=== PATIENT | male | born 1990 | race Caucasian/White ===

== ENCOUNTER 2017-11-23 20:25 | Emergency (ER) | payer OTHER ==
[~2017-11-23] VITALS: Ht 170.2 cm; Wt 79.4 kg
[2017-11-23 20:34] VITALS: BP 114/65
--- NOTE | 2017-11-23 20:41 | NUR ---
PT TAKEN TO CHAIR E
--- NOTE | 2017-11-23 20:45 | NUR ---
27/M C/O COUGH AND SORE THROAT, WAS PREVIOUSLY SEEN LAST FRIDAY. PT ASKING FOR DOCTOR'S NOTE. AOX4, AMBULATORY, RR EVEN AND UNLABORED. PT DENIES CP, SOB, FEVER, N/V/D.
[2017-11-23 21:50] VITALS: BP 126/74
--- NOTE | 2017-11-23 21:50 | NUR ---
Patient discharged with v/s stable. Written and verbal after care instructions given and explained. Patient verbalized understanding. Ambulatory with steady gait. All questions addressed prior to discharge. Advised to follow up with PMD.
== END 2017-11-23 21:50 | disposition home or self-care (01) ==
LOC: MED 20:25
DX: J06.9 Acute upper respiratory infection, unspecified (principal)
CPT/HCPCS: 99283

== ENCOUNTER 2021-11-15 20:16 | Inpatient (IN) | payer MEDICAID, SELFPAY ==
[~2021-11-15] VITALS: Ht 170.2 cm; Wt 83.9 kg
[2021-11-15 20:58] VITALS: BP 157/72
--- NOTE | 2021-11-15 21:08 | NUR ---
TO LOBBY FOLLOWING TRIAGE
--- NOTE | 2021-11-15 21:10 | NUR ---
UA DIPPED THEN SENT TO LAB
[2021-11-15] MEDS ORDERED: NACL 0.9% 1,000 ML IV SCH (21:15)
[2021-11-15 21:25] LABS: APPEARANCE,URINE CLEAR (CLEAR); BILIRUBIN,URINE NEGATIVE (NEGATIVE); BLOOD, URINE NEGATIVE (NEGATIVE); COLOR,URINE YELLOW (YELLOW); LEUKOCYTE ESTERASE ,URINE NEGATIVE (NEGATIVE); NITRITE, URINE NEGATIVE (NEGATIVE); UGLUCOSE NEGATIVE (NEGATIVE)
--- NOTE | 2021-11-15 21:27 | NUR ---
31 YO M BIB SELF WITH C/C OF 7/10 LOWER ABD PAIN X THIS MORNING. DENIES N/V/D. PT STATES HE HAS BEEN HAVING NORMAL BM. DENIES URINARY CHANGES. ABD APPEARS FLAT. BOWEL SOUNDS ACTIVE X4 QUADS. PT PLACED IN GOWN. DENIES HX, RX AND ALLERGIES
--- NOTE | 2021-11-15 21:30 | NUR ---
Note undone in EDM - 11/15/21 at 2130 by [facility] 31 YO M BIB SELF WITH C/C OF 7/10 LOWER ABD PAIN X THIS MORNING. DENIES N/V/D. PT STATES HE HAS BEEN HAVING NORMAL BM. DENIES URINARY CHANGES. ABD APPEARS FLAT. BOWEL SOUNDS ACTIVE X4 QUADS. PT PLACED IN GOWN. DENIES HX, RX AND ALLERGIES
[2021-11-15 21:45] LABS: BASOPHILS # (AUTO) 0.1 K/uL (0.00-0.22); BASOPHILS % (AUTO) 0.9 % (0.0-2.0); EOSINOPHILS # (AUTO) 0.2 K/uL (0-0.4); EOSINOPHILS % (AUTO) 1.3 % (0.0-4.0); HEMOGLOBIN 14.9 g/dL (12.0-18.0); LYMPHOCYTES # (AUTO) 2.2 K/uL (2.0-11.5); LYMPHOCYTES % (AUTO) 17.2 % (20.5-51.1); MEAN CORPUSCULAR HEMOGLOBIN 28 pg (27-31); MEAN CORPUSCULAR HGB CONC 33 g/dL (33-37); MEAN CORPUSCULAR VOLUME 84.3 fL (80-94); MONOCYTES # (AUTO) 1.1 K/uL (0.8-1.0); MONOCYTES % (AUTO) 8.8 % (1.7-9.3); NEUTROPHILS # (AUTO) 9.3 K/uL (1.8-7.7); NEUTROPHILS % (AUTO) 71.8 % (42.2-75.2); PLATELET COUNT (AUTO) 261 K/uL (140-450); RED BLOOD CELL COUNT(AUTO) 5.33 MIL/uL (4.20-6.10); RED CELL DISTRIBUTION WIDTH 13.6 % (11.6-13.7); WHITE BLOOD COUNT (AUTO) 12.9 K/uL (4.8-10.8)
--- NOTE | 2021-11-15 21:47 | NUR ---
31YR OLD MALE BIB SELF C/O ABD PAIN RLQ X1 DAY . NO N/V/D. PAIN 03/10. 20G IV CATH IN L AC LABS AND URINE OBTAINED. NKDA . NO MED HX
--- NOTE | 2021-11-15 22:00 | NUR ---
PT BACK FROM CT. IV BOLUS NS HANGING. PT IN BED AWAITING RESULTS.
[2021-11-15 22:08] LABS: ALBUMIN 4.1 g/dL (3.4-5.0); ANION GAP 10.1 (8-16); CARBON DIOXIDE 31.6 mmol/L (21-32); POTASSIUM 3.7 mmol/L (3.5-5.1); TOTAL BILIRUBIN 0.8 mg/dL (0.0-1.0)
--- NOTE | 2021-11-15 22:10 | NUR ---
SHILA GOLDEN AT BEDSIDE EXAMINING PT.
--- NOTE | 2021-11-15 22:12 | NUR ---
PT DENIES TAKING MEDICATION AT HOME. SKIN IS INTACT.
[2021-11-15] MEDS ORDERED: metroNIDAZOLE 500 MG/NS PREMIX 100 ML IV ONE (22:15)
--- NOTE | 2021-11-15 22:17 | NUR ---
SPOKE TO ABOUT GETTING CULTURES, STATED THERES NO NEED.
[2021-11-15] MEDS ORDERED: cefTRIAXone 1,000 MG VIAL ONE (22:20)
[2021-11-15] MEDS: NACL 0.9% 1,000 ML IV SCH (22:50)
--- NOTE | 2021-11-15 23:00 | NUR ---
PT IS BED WITH SIDERAILS UP. AWAITING SURGERY IN AM. M/S HOLD
--- NOTE | 2021-11-15 23:26 | NUR ---
REPORT GIVEN TO ARMINDA BARNEY. EXT [id number]
--- NOTE | 2021-11-15 23:30 | NUR ---
Patient will be admitted to care of . Admited to [facility]. Will go to [id number]. Belongings list completed. Report to ARMINDA BARNEY.
--- NOTE | 2021-11-15 23:35 | NUR ---
PATIENT WAS ADMITTED IN [facility] UNIT AT 2335.
--- NOTE | 2021-11-15 23:35 | NUR ---
PATIENT WAS BROUGHT TO [facility] UNIT VIA WHEELCHAIR AAOX4 ON ROOM AIR. AMBULATORY. NO S/S OF RESPIRATORY DISTRESS. BREATHING EVEN UNLABORED. ALL SAFETY MEASURES ARE IN PLACE. ORIENTED TO CALL LIGHT, TOILET, STAFF. MRSA SCREENING DONE. BOWEL SOUND PRESENT IN ALL 4 QUADRANT. LUNGS CLEAR ON AUSCULTATION. NO COMPLAINTS OF PAIN AT THIS TIME.
[2021-11-16] MEDS ORDERED: PIPERACILLIN/TAZOBACTAM 3.375 GM VIAL IV ONE ×2 (00:03→05:18)
[2021-11-16] MEDS: PIPERACILLIN/TAZOBACTAM 3.375 GM in DEXTROSE 5% 50 ML IV SCH ×5 (00:22→23:32)
--- NOTE | 2021-11-16 00:22 | NUR ---
STARTED IVF NS AT 100 MLS/HR. ZOSYN ADMINISTERED ORDERED.
[2021-11-16] MEDS: NACL 0.9% 1,000 ML IV SCH ×3 (00:25→18:58)
--- NOTE | 2021-11-16 02:56 | NUR ---
CHECKED PT, PATIENT IS SLEEPING. NO SOB NOTED. CALL LIGHT WITHIN REACH.
[2021-11-16] MEDS ORDERED: HYDROcodone/APAP 5/325 MG 1 TAB TAB PO PRN ×3 (05:05→16:10)
--- NOTE | 2021-11-16 05:05 | NUR ---
PATIENT COMPLAINED OF ABDOMINAL PAIN, DR. MANLEY NOTIFIED WITH ORDERS, CARRIED OUT.
[2021-11-16] MEDS ORDERED: MORPHINE SULFATE 2 MG/ML SYR IVP PRN ×2 (05:10→07:30)
--- NOTE | 2021-11-16 05:14 | NUR ---
PAIN MEDICINE NOT ADMINISTERED, PATIENT SAID HE CAN TOLERATE THE PAIN.
--- NOTE | 2021-11-16 07:23 | NUR ---
ENDORSED PATIENT TO NURSE ALEJANDRO FOR CONTINUITY OF CARE. PT IS STABLE.
--- NOTE | 2021-11-16 07:24 | NUR ---
RECEIVED ENDORSEMENT FROM SAVITA HILLIARD FOR CONTINUITY OF CARE. PT IS STABLE IN BED. A&OX4. VERBALLY RESPONSIVE AND ABLE TO COMMUNICATE NEEDS. DENIES PAIN. ON ROOM AIR. RESPIRATIONS EVEN AND UNLABORED WITH NO APPARENT S/SX OF ACUTE DISTRESS. PATIENT IS AMBULATORY AND CONTINENT. SKIN IS INTACT. PATIENT'S IV SITE TO THE LAC 20G IS PATENT/INTACT WITH NS INFUSING AT 100 ML/HR. POC UPDATED. ALL SAFETY MEASURES IN PLACE. CALL LIGHT WITHIN REACH. WILL CONTINUE TO MONITOR.
[2021-11-16] MEDS ORDERED: DOCUSATE SODIUM 100 MG GELCAP PO PRN (07:30)
[2021-11-16] MEDS ORDERED: MAG SULF 2000 MG/WATER PREMIX 50 ML IV PRN (07:30)
[2021-11-16] MEDS ORDERED: ACETAMINOPHEN 325 MG TAB PO PRN (07:30)
[2021-11-16] MEDS ORDERED: ZOLPIDEM 5 MG TAB PO PRN (07:30)
[2021-11-16] MEDS ORDERED: POTASSIUM CHLORIDE 10 MEQ TABER PO PRN (07:30)
[2021-11-16] MEDS ORDERED: ONDANSETRON 4 MG/2 ML VIAL IVP PRN ×2 (07:30→15:25)
[2021-11-16] MEDS ORDERED: LORazepam 2 MG/ML VIAL IM/IVP PRN (07:30)
[2021-11-16] MEDS ORDERED: SODIUM PHOS / POTASSIUM PHOS 1 PKT PDR PO PRN (07:30)
[2021-11-16 08:00] VITALS: BP 109/62
[2021-11-16 08:50] LABS: BASOPHILS # (AUTO) 0.1 K/uL (0.00-0.22); BASOPHILS % (AUTO) 1.2 % (0.0-2.0); EOSINOPHILS # (AUTO) 0.2 K/uL (0-0.4); EOSINOPHILS % (AUTO) 2.4 % (0.0-4.0); HEMATOCRIT 42.9 % (36-52); HEMOGLOBIN 14.2 g/dL (12.0-18.0); LYMPHOCYTES # (AUTO) 1.6 K/uL (2.0-11.5); LYMPHOCYTES % (AUTO) 22.9 % (20.5-51.1); MEAN CORPUSCULAR HEMOGLOBIN 28 pg (27-31); MEAN CORPUSCULAR HGB CONC 33 g/dL (33-37); MEAN CORPUSCULAR VOLUME 84.8 fL (80-94); MONOCYTES # (AUTO) 0.5 K/uL (0.8-1.0); MONOCYTES % (AUTO) 7.2 % (1.7-9.3); NEUTROPHILS # (AUTO) 4.6 K/uL (1.8-7.7); NEUTROPHILS % (AUTO) 66.3 % (42.2-75.2); PLATELET COUNT (AUTO) 231 K/uL (140-450); RED BLOOD CELL COUNT(AUTO) 5.06 MIL/uL (4.20-6.10); RED CELL DISTRIBUTION WIDTH 14.2 % (11.6-13.7); WHITE BLOOD COUNT (AUTO) 6.9 K/uL (4.8-10.8)
[2021-11-16 09:26] LABS: PROTHROMBIN TIME 9.8 secs (10.8-13.4)
--- NOTE | 2021-11-16 09:33 | NUR ---
PT ENDORSED TO MARGE RESTREPO FOR CONTINUITY OF CARE. PT IS STABLE.
--- NOTE | 2021-11-16 09:34 | NUR ---
RECEIVED REPORT FROM ALEJANDRO RESTREPO. ASSUMED CARE FOR PT. RESPIRATIONS ARE EVEN AND UNLABORED. NO SIGNS OF DISTRESS NOTED. CALL LIGHT WITHIN REACH. ALL SAFETY MEASURES IN PLACE. WILL CONTINUE TO MONITOR.
[2021-11-16 10:04] LABS: ALBUMIN 3.4 g/dL (3.4-5.0); TOTAL BILIRUBIN 1.2 mg/dL (0.0-1.0)
[2021-11-16 10:13] LABS: CHOL/HDL RATIO 3.4 (1-4.5); FREE T4 (FREE THYROXINE) 1.21 ng/dL (0.76-1.46); PHOSPHORUS 3.1 mg/dL (2.5-4.9); THYROID STIMULATING HORMONE 0.81 uIU/mL (0.34-3.74)
[2021-11-16 10:19] LABS: BARBITURATE, URINE NEGATIVE ng/ml (NEG <=200); BENZODIAZEPINE, URINE NEGATIVE ng/mL (NEG <=200); CANNABINOID, URINE POSITIVE ng/mL (NEG <=50); COCAINE, URINE NEGATIVE ng/mL (NEG <=300); PHENCYCLIDINE SCREEN,URINE NEGATIVE ng/mL (NEG <=25)
[2021-11-16 10:20] LABS: OPIATE, URINE NEGATIVE ng/mL (NEG <=2000)
--- NOTE | 2021-11-16 10:28 | NUR ---
PATIENT HAS BEEN SCREENED AND CATEGORIZED LOW NUTRITION RISK. PATIENT WILL BE SEEN WITHIN 7 DAYS OF ADMISSION. 11/22/[address]
--- NOTE | 2021-11-16 12:54 | NUR ---
DID ROUNDS ON PT. PT IN BED ON HIS PHONE. RESPIRATIONS ARE EVEN AND UNLABORED ON ROOM AIR. NO COMPLAINTS OF PAIN OR DISCOMFORT NOTED. CALL LIGHT WITHIN REACH. WILL CONTINUE TO MONITOR.
[2021-11-16] MEDS ORDERED: BUPIVACAINE-MPF/EPI 0.25% 10 ML VIAL INJ ONE (13:10)
[2021-11-16] MEDS ORDERED: LIDOCAINE MPF 1% 10 ML ONE (13:11)
--- NOTE | 2021-11-16 13:51 | NUR ---
OR TEAM ON UNIT TO MACHINE OPERATOR PACKAGING PT FOR SCHEDULED PROCEDURE. PT IS AWAKE AND ALERT. RESPIRATIONS ARE EVEN AND UNLABORED. NO SIGNS OF DISTRESS NOTED.
[2021-11-16] MEDS ORDERED: HYDROmorphone PFS 2 MG/ML SYR ONE (14:07)
[2021-11-16] MEDS ORDERED: PROPOFOL 200 MG/20 ML VIAL IV ONE (14:07)
[2021-11-16] MEDS ORDERED: MIDAZOLAM 2 MG/2 ML VIAL ONE (14:07)
[2021-11-16] MEDS ORDERED: ROCURONIUM 50 MG/5 ML VIAL IV ONE (14:10)
[2021-11-16] MEDS ORDERED: SUCCINYLCHOLINE CHLORIDE 200 MG/10 ML VIAL IVP ONE (15:00)
[2021-11-16] MEDS ORDERED: DESFLURANE 240 ML BTL INH ONE (15:00)
[2021-11-16] MEDS ORDERED: fentaNYL citrate 0.05 MG/ML VIAL ONE (15:13)
[2021-11-16] MEDS ORDERED: HYDROmorphone 1 MG/ML AMP IVP PRN ×2 (15:25→16:10)
[2021-11-16] MEDS ORDERED: SUGAMMADEX SODIUM 200 MG/2 ML VIAL IV ONE (15:51)
[2021-11-16] MEDS ORDERED: KETOROLAC 30 MG/ML VIAL ONE (15:51)
[2021-11-16] MEDS ORDERED: DEXAMETHASONE 4 MG/ML VIAL ONE (15:51)
[2021-11-16] MEDS ORDERED: ONDANSETRON 4 MG/2 ML VIAL ONE (15:51)
--- NOTE | 2021-11-16 16:54 | NUR ---
PT RETURNED TO [facility]
--- NOTE | 2021-11-16 17:01 | NUR ---
PT RETURNED FROM OR, DENIES PAIN, LAP APPY X3 DERMABOND, DRY AND INTACT, SAFETY MEASURES MAINTAINED, WILL CONTINUE TO MONITOR
--- NOTE | 2021-11-16 18:32 | NUR ---
IV ANTIBIOTIC ADMINISTERED BY ARMINDA JACOBSON. WILL CONTINUE TO MONITOR.
--- NOTE | 2021-11-16 19:15 | NUR ---
ENDORSED PT TO MAINTENANCE REPAIRMAN NURSE FOR CONTINUITY OF CARE. NO COMPLAINTS OF PAIN OR DISCOMFORT NOTED. ALL NEEDS MET THROUGHOUT SHIFT. PT IS STABLE.
--- NOTE | 2021-11-16 22:52 | NUR ---
PATIENT AAOX4, AMBULATORY, ON ROOM AIR. NO SOB NOTED. RESPIRATION EVEN UNLABORED. NO COMPLAINTS OF PAIN. SAFETY MEASURES IN PLACE. CALL LIGHT WITHIN REACH.
--- NOTE | 2021-11-16 23:32 | NUR ---
SCHEDULED MEDICATION GIVEN.
[2021-11-17] VITALS: BP 104/60
[2021-11-17] MEDS: NACL 0.9% 1,000 ML IV SCH (04:50)
[2021-11-17] MEDS: PIPERACILLIN/TAZOBACTAM 3.375 GM in DEXTROSE 5% 50 ML IV SCH ×2 (06:09→12:51)
--- NOTE | 2021-11-17 06:09 | NUR ---
ZOSYN ADMINISTERED ORDERED.
[2021-11-17 07:03] LABS: BASOPHILS % (AUTO) 0.3 % (0.0-2.0); EOSINOPHILS % (AUTO) 0.1 % (0.0-4.0); HEMATOCRIT 42.4 % (36-52); HEMOGLOBIN 14.3 g/dL (12.0-18.0); LYMPHOCYTES # (AUTO) 1.2 K/uL (2.0-11.5); LYMPHOCYTES % (AUTO) 12.2 % (20.5-51.1); MEAN CORPUSCULAR HEMOGLOBIN 28 pg (27-31); MEAN CORPUSCULAR HGB CONC 34 g/dL (33-37); MONOCYTES # (AUTO) 0.6 K/uL (0.8-1.0); MONOCYTES % (AUTO) 6.1 % (1.7-9.3); NEUTROPHILS # (AUTO) 7.8 K/uL (1.8-7.7); NEUTROPHILS % (AUTO) 81.3 % (42.2-75.2); PLATELET COUNT (AUTO) 255 K/uL (140-450); RED BLOOD CELL COUNT(AUTO) 5.05 MIL/uL (4.20-6.10); RED CELL DISTRIBUTION WIDTH 13.6 % (11.6-13.7); WHITE BLOOD COUNT (AUTO) 9.6 K/uL (4.8-10.8)
[2021-11-17 07:18] LABS: ALBUMIN 3.4 g/dL (3.4-5.0); ANION GAP 12.5 (8-16); CARBON DIOXIDE 25.6 mmol/L (21-32); CREATININE 0.9 mg/dL (0.6-1.3); MAGNESIUM 2.3 mg/dL (1.8-2.4); POTASSIUM 4.1 mmol/L (3.5-5.1); TOTAL BILIRUBIN 0.7 mg/dL (0.0-1.0)
--- NOTE | 2021-11-17 07:25 | NUR ---
PATIENT AWAKE NO DISTRESS NOTED. RECEIVED ENDORSE FROM BINDER STRIPPER MACHINE NURSE FOR CONTINUITY OF CARE.
--- NOTE | 2021-11-17 07:30 | NUR ---
ENDORSED TO AM NURSE FOR CONTINUITY OF CARE. PT IN STABLE CONDITION.
[2021-11-17 08:00] VITALS: BP 138/93
--- NOTE | 2021-11-17 08:00 | NUR ---
DISCUSSED AND REVIEWED PLAN ON CARE WITH FLOYD RESTREPO. WILL CONTINUE TO MONITOR
[2021-11-17] MEDS ORDERED: IBUP-1842 PO (09:00)
--- NOTE | 2021-11-17 10:37 | NUR ---
PATIENT ALERT NO DISTRESS NOTED. DENIES PAIN. ON BED RESTING WITH IV RUNNING AT100 CC/HOUR TOLERATED WELL. NO FLUID OVERLOAD NOTED. IV SITE NO S/S OF INFECTION OR INFILTRATE. NO ADVERSE REACTION NOTED ON IV ANTIBIOTIC. SURGICAL SITE NO BLEEDING OR S/S OF INFECTION. ENCOURAGED TO MOVE OR WALK TOLERATED.
--- NOTE | 2021-11-17 12:59 | NUR ---
ARMINDA CAGE IV ANTIBIOTIC NO ADVERSE REACTION NOTED.
[2021-11-17 13:23] VITALS: BP 138/93
--- NOTE | 2021-11-17 13:46 | NUR ---
DISCHARGE INSTRUCTION AND PACKET GIVEN TO PATIENT AND VERBALIZED UNDERSTANDING.
--- NOTE | 2021-11-17 14:01 | NUR ---
IV REMOVE WITH CATHETER INTACT. NAME BAND REMOVED PATIENT ALERT ORIENTED. PATIENT AMBULATE TO LOBBY AND I ACCOMPANIED HIM T THEIR PRIVATE CAR.
== END 2021-11-17 14:00 | disposition home or self-care (01) | DRG 234 ==
LOC: MED 20:16 → MMU 22:51 → MTU 23:45
PROVIDERS: ADMIT Student in an Organized Health Care Education/Training Program; ATTEND Student in an Organized Health Care Education/Training Program
PROC: 0DTJ4ZZ Resection of Appendix, Percutaneous Endoscopic Approach (ICD-10-PCS; principal; 2021-11-16 14:00)
DX: K35.80 Unspecified acute appendicitis (principal); F12.10 Cannabis abuse, uncomplicated; Z20.822 Contact with and (suspected) exposure to COVID-19; Z80.0 Family history of malignant neoplasm of digestive organs
CPT/HCPCS: 36415; 71045; 80053; 80305; 81003; 82150; 83036; 83690; 83735; 83880; 84100; 84439; 84443; 85025; 85610; 85730; 87081; 96365; 96375; 99285; J0330; J0696; J1100; J1170; J1885; J2001; J2250; J2405; J2543; J2704; J3010; J3490; J7060